=== PATIENT | male | born 1955 | race Caucasian/White ===

== ENCOUNTER 2021-01-16 14:12 | Inpatient (IN) ==
[2021-01-16] MEDS ORDERED: Nitroglycerin 0.4 MG TAB.SUBL SL PRN (14:37)
[2021-01-16] MEDS ORDERED: *HR* Insulin Regular U-500 500 UNIT/ML SUBQ SCH (17:00)
[2021-01-16] MEDS: *HR* Heparin 5,000 UNIT/ML VIAL SQ SCH (17:35)
[2021-01-16] MEDS ORDERED: Acetaminophen 325 MG TABLET PO ONE (17:46)
[2021-01-16] MEDS ORDERED: *HR* Heparin 5,000 UNIT/ML VIAL SQ SCH ×2 (18:00)
[2021-01-16] MEDS: *HR* Insulin Regular U-500 500 UNIT/ML SUBQ SCH (18:53)
[2021-01-16] MEDS: *HR* OxyCODONE Immed Rel 5 MG TABLET PO PRN (20:01)
[2021-01-16] MEDS: Pregabalin 75 MG CAPSULE PO SCH (20:03)
[2021-01-17] MEDS: *HR* OxyCODONE Immed Rel 5 MG TABLET PO PRN ×4 (05:37→22:57)
[2021-01-17] MEDS: *HR* Heparin 5,000 UNIT/ML VIAL SQ SCH ×2 (05:38→17:01)
[2021-01-17 07:03] LABS: Basophils # 0.1 K/mcL (0.0-0.2); Basophils % 1.4 %; Eosinophils # 0.2 K/mcL (0.0-0.6); Eosinophils % 3.6 %; Hematocrit 34.7 % (37.5-50.1); Hemoglobin 11.7 g/dL (12.9-16.9); Immature Granulocytes % 0.9 % (0-4); Lymphocytes # 1.4 K/mcL (0.6-4.6); Lymphocytes % 22.1 %; Mean Corpuscular HGB Conc 33.7 g/dL (31.6-35.5); Mean Corpuscular Hemoglobin 31.5 pg (28.0-33.3); Mean Corpuscular Volume 93.3 fL (83.0-100.0); Mean Platelet Volume 10.2 fL (9.4-12.4); Monocytes # 0.5 K/mcL (0.0-1.3); Monocytes % 7.6 %; Neutrophils # 4.1 K/mcL (1.6-8.9); Platelet Count 328 K/mcL (140-400); Red Blood Count 3.72 M/mcL (4.19-5.50); Red Cell Distribution Width 12.4 % (11.5-14.5); Segmented Neutrophils % 64.4 %; White Blood Count 6.3 K/mcL (4.3-11.1)
[2021-01-17 07:27] LABS: BUN/Creatinine Ratio 25 (6-26); Blood Urea Nitrogen 30 mg/dL (8-23); Calcium 10.1 mg/dL (8.6-10.3); Carbon Dioxide 28 mEq/L (23-29); Chloride 99 mEq/L (98-107); Glucose 300 mg/dL (70-105); Osmolality,Calculated 301 (280-300); Potassium 4.1 mEq/L (3.5-5.1); Sodium 137 mEq/L (136-145); eGFR For African Americans > 60 (> 60); eGFR For Non-African Americans > 60 (> 60)
[2021-01-17] MEDS ORDERED: *HR* Insulin Regular U-500 500 UNIT/ML SUBQ SCH (08:00)
[2021-01-17] MEDS: Nicotine 21 MG PATCH.TD24 TD SCH (08:17)
[2021-01-17] MEDS: Metoprolol XL (24 HR) Succ 50 MG TAB.ER.24H PO SCH (08:18)
[2021-01-17] MEDS: Aspirin Enteric Coated 81 MG Tablet PO SCH (08:18)
[2021-01-17] MEDS: Fenofibrate 54 MG TABLET PO SCH (08:18)
[2021-01-17] MEDS: Niacin (24 HR) 500 MG TAB.ER.24H PO SCH (08:19)
[2021-01-17] MEDS: Pregabalin 75 MG CAPSULE PO SCH ×2 (08:19→20:27)
[2021-01-17] MEDS: *HR* Insulin Regular U-500 500 UNIT/ML SUBQ SCH ×2 (08:35→16:18)
[2021-01-17] MEDS: Insulin DETEMIR 100 UNIT/ML X5UNITS SUBQ SCH (20:26)
[2021-01-18] MEDS: *HR* OxyCODONE Immed Rel 5 MG TABLET PO PRN ×4 (03:07→18:31)
[2021-01-18] MEDS: *HR* Heparin 5,000 UNIT/ML VIAL SQ SCH ×2 (05:40→18:31)
[2021-01-18] MEDS: Metoprolol XL (24 HR) Succ 50 MG TAB.ER.24H PO SCH (08:40)
[2021-01-18] MEDS: Aspirin Enteric Coated 81 MG Tablet PO SCH (08:41)
[2021-01-18] MEDS: Nicotine 21 MG PATCH.TD24 TD SCH (08:41)
[2021-01-18] MEDS: Pregabalin 75 MG CAPSULE PO SCH ×2 (08:41→20:58)
[2021-01-18] MEDS: Niacin (24 HR) 500 MG TAB.ER.24H PO SCH (08:41)
[2021-01-18] MEDS: Fenofibrate 54 MG TABLET PO SCH (08:41)
[2021-01-18] MEDS: Insulin DETEMIR 100 UNIT/ML X5UNITS SUBQ SCH ×2 (08:42→18:31)
[2021-01-18] MEDS: *HR* Insulin Regular U-500 500 UNIT/ML SUBQ SCH ×2 (08:54→18:46)
[2021-01-19] MEDS: *HR* OxyCODONE Immed Rel 5 MG TABLET PO PRN ×5 (02:47→22:13)
[2021-01-19] MEDS: *HR* Heparin 5,000 UNIT/ML VIAL SQ SCH ×2 (06:30→17:16)
[2021-01-19] MEDS: Fenofibrate 54 MG TABLET PO SCH (08:59)
[2021-01-19] MEDS: Niacin (24 HR) 500 MG TAB.ER.24H PO SCH (08:59)
[2021-01-19] MEDS: Metoprolol XL (24 HR) Succ 50 MG TAB.ER.24H PO SCH (09:00)
[2021-01-19] MEDS: Aspirin Enteric Coated 81 MG Tablet PO SCH (09:00)
[2021-01-19] MEDS: Pregabalin 75 MG CAPSULE PO SCH ×2 (09:01→22:13)
[2021-01-19] MEDS: Nicotine 21 MG PATCH.TD24 TD SCH (09:07)
[2021-01-19] MEDS: Insulin DETEMIR 100 UNIT/ML X5UNITS SUBQ SCH ×2 (09:08→09:18)
[2021-01-19] MEDS: *HR* Insulin Regular U-500 500 UNIT/ML SUBQ SCH ×2 (09:08→17:13)
[2021-01-20] MEDS: *HR* OxyCODONE Immed Rel 5 MG TABLET PO PRN ×4 (05:11→21:02)
[2021-01-20] MEDS: *HR* Heparin 5,000 UNIT/ML VIAL SQ SCH ×2 (05:11→16:52)
[2021-01-20] MEDS: Metoprolol XL (24 HR) Succ 50 MG TAB.ER.24H PO SCH (08:26)
[2021-01-20] MEDS: Niacin (24 HR) 500 MG TAB.ER.24H PO SCH (08:26)
[2021-01-20] MEDS: Pregabalin 75 MG CAPSULE PO SCH ×2 (08:26→20:40)
[2021-01-20] MEDS: Fenofibrate 54 MG TABLET PO SCH (08:26)
[2021-01-20] MEDS: Aspirin Enteric Coated 81 MG Tablet PO SCH (08:26)
[2021-01-20] MEDS: Insulin DETEMIR 100 UNIT/ML X5UNITS SUBQ SCH ×2 (08:28→20:40)
[2021-01-20] MEDS: *HR* Insulin Regular U-500 500 UNIT/ML SUBQ SCH ×2 (08:29→16:51)
[2021-01-21] MEDS: *HR* Heparin 5,000 UNIT/ML VIAL SQ SCH ×2 (06:13→17:19)
[2021-01-21] MEDS: *HR* OxyCODONE Immed Rel 5 MG TABLET PO PRN ×4 (06:16→20:31)
[2021-01-21] MEDS: Fenofibrate 54 MG TABLET PO SCH (08:32)
[2021-01-21] MEDS: Pregabalin 75 MG CAPSULE PO SCH ×2 (08:32→20:31)
[2021-01-21] MEDS: Aspirin Enteric Coated 81 MG Tablet PO SCH (08:32)
[2021-01-21] MEDS: Metoprolol XL (24 HR) Succ 50 MG TAB.ER.24H PO SCH (08:32)
[2021-01-21] MEDS: Niacin (24 HR) 500 MG TAB.ER.24H PO SCH (08:32)
[2021-01-21] MEDS: Insulin DETEMIR 100 UNIT/ML X5UNITS SUBQ SCH ×3 (08:33→20:32)
[2021-01-21] MEDS: *HR* Insulin Regular U-500 500 UNIT/ML SUBQ SCH ×2 (08:33→17:19)
[2021-01-22] MEDS: *HR* OxyCODONE Immed Rel 5 MG TABLET PO PRN ×2 (01:31→20:34)
[2021-01-22] MEDS: *HR* Heparin 5,000 UNIT/ML VIAL SQ SCH ×2 (05:52→17:47)
[2021-01-22] MEDS: Metoprolol XL (24 HR) Succ 50 MG TAB.ER.24H PO SCH (08:20)
[2021-01-22] MEDS: Niacin (24 HR) 500 MG TAB.ER.24H PO SCH (08:20)
[2021-01-22] MEDS: Pregabalin 75 MG CAPSULE PO SCH ×2 (08:21→20:34)
[2021-01-22] MEDS: *HR* Insulin Regular U-500 500 UNIT/ML SUBQ SCH ×2 (08:21→17:48)
[2021-01-22] MEDS: Insulin DETEMIR 100 UNIT/ML X5UNITS SUBQ SCH ×2 (08:21→20:34)
[2021-01-22] MEDS: Fenofibrate 54 MG TABLET PO SCH (08:21)
[2021-01-22] MEDS: Aspirin Enteric Coated 81 MG Tablet PO SCH (08:21)
[2021-01-23] MEDS: *HR* Heparin 5,000 UNIT/ML VIAL SQ SCH ×2 (04:59→21:47)
[2021-01-23] MEDS: Metoprolol XL (24 HR) Succ 50 MG TAB.ER.24H PO SCH (10:43)
[2021-01-23] MEDS: Niacin (24 HR) 500 MG TAB.ER.24H PO SCH (10:44)
[2021-01-23] MEDS: Fenofibrate 54 MG TABLET PO SCH (10:44)
[2021-01-23] MEDS: Pregabalin 75 MG CAPSULE PO SCH ×2 (10:45→21:47)
[2021-01-23] MEDS: Aspirin Enteric Coated 81 MG Tablet PO SCH (10:45)
[2021-01-23] MEDS: Insulin DETEMIR 100 UNIT/ML X5UNITS SUBQ SCH ×2 (10:49→22:17)
[2021-01-23] MEDS: *HR* Insulin Regular U-500 500 UNIT/ML SUBQ SCH (10:49)
[2021-01-23] MEDS: *HR* OxyCODONE Immed Rel 5 MG TABLET PO PRN (17:58)
[2021-01-24] MEDS: *HR* Heparin 5,000 UNIT/ML VIAL SQ SCH ×2 (06:06→17:04)
[2021-01-24] MEDS: *HR* Insulin Regular U-500 500 UNIT/ML SUBQ SCH ×3 (07:32→17:04)
[2021-01-24] MEDS: Metoprolol XL (24 HR) Succ 50 MG TAB.ER.24H PO SCH (08:46)
[2021-01-24] MEDS: Aspirin Enteric Coated 81 MG Tablet PO SCH (08:46)
[2021-01-24] MEDS: Fenofibrate 54 MG TABLET PO SCH (08:47)
[2021-01-24] MEDS: Pregabalin 75 MG CAPSULE PO SCH ×2 (08:47→20:06)
[2021-01-24] MEDS: Niacin (24 HR) 500 MG TAB.ER.24H PO SCH (08:47)
[2021-01-24] MEDS: Insulin DETEMIR 100 UNIT/ML X5UNITS SUBQ SCH ×2 (08:48→20:07)
[2021-01-24 09:22] LABS: BUN/Creatinine Ratio 15 (6-26); Basophils # 0.1 K/mcL (0.0-0.2); Basophils % 1.2 %; Blood Urea Nitrogen 19 mg/dL (8-23); Calcium 10.3 mg/dL (8.6-10.3); Carbon Dioxide 27 mEq/L (23-29); Chloride 98 mEq/L (98-107); Eosinophils # 0.2 K/mcL (0.0-0.6); Eosinophils % 2.4 %; Glucose 297 mg/dL (70-105); Hematocrit 33.5 % (37.5-50.1); Hemoglobin 11.1 g/dL (12.9-16.9); Immature Granulocytes % 1.1 % (0-4); Lymphocytes # 1.3 K/mcL (0.6-4.6); Lymphocytes % 17.4 %; Mean Corpuscular HGB Conc 33.1 g/dL (31.6-35.5); Mean Corpuscular Hemoglobin 30.7 pg (28.0-33.3); Mean Corpuscular Volume 92.8 fL (83.0-100.0); Monocytes # 0.7 K/mcL (0.0-1.3); Monocytes % 9.2 %; Neutrophils # 5.1 K/mcL (1.6-8.9); Osmolality,Calculated 293 (280-300); Platelet Count 375 K/mcL (140-400); Potassium 4.6 mEq/L (3.5-5.1); Red Blood Count 3.61 M/mcL (4.19-5.50); Red Cell Distribution Width 12.5 % (11.5-14.5); Segmented Neutrophils % 68.7 %; Sodium 135 mEq/L (136-145); White Blood Count 7.4 K/mcL (4.3-11.1); eGFR For African Americans > 60 (> 60); eGFR For Non-African Americans 59 (> 60)
[2021-01-24] MEDS: *HR* OxyCODONE Immed Rel 5 MG TABLET PO PRN (22:25)
[2021-01-25] MEDS: *HR* OxyCODONE Immed Rel 5 MG TABLET PO PRN ×2 (02:34→08:10)
[2021-01-25] MEDS: *HR* Heparin 5,000 UNIT/ML VIAL SQ SCH ×2 (06:10→18:22)
[2021-01-25] MEDS: Aspirin Enteric Coated 81 MG Tablet PO SCH (08:09)
[2021-01-25] MEDS: Fenofibrate 54 MG TABLET PO SCH (08:09)
[2021-01-25] MEDS: Niacin (24 HR) 500 MG TAB.ER.24H PO SCH (08:10)
[2021-01-25] MEDS: Pregabalin 75 MG CAPSULE PO SCH ×2 (08:10→22:27)
[2021-01-25] MEDS: Metoprolol XL (24 HR) Succ 50 MG TAB.ER.24H PO SCH (08:10)
[2021-01-25] MEDS: *HR* Insulin Regular U-500 500 UNIT/ML SUBQ SCH ×2 (10:36→18:23)
[2021-01-25] MEDS: Insulin DETEMIR 100 UNIT/ML X5UNITS SUBQ SCH ×2 (10:36→18:23)
[2021-01-26] MEDS: *HR* OxyCODONE Immed Rel 5 MG TABLET PO PRN ×3 (00:05→22:21)
[2021-01-26] MEDS: *HR* Heparin 5,000 UNIT/ML VIAL SQ SCH ×2 (06:46→17:00)
[2021-01-26] MEDS: Niacin (24 HR) 500 MG TAB.ER.24H PO SCH (09:20)
[2021-01-26] MEDS: Fenofibrate 54 MG TABLET PO SCH (09:20)
[2021-01-26] MEDS: Aspirin Enteric Coated 81 MG Tablet PO SCH (09:20)
[2021-01-26] MEDS: Metoprolol XL (24 HR) Succ 50 MG TAB.ER.24H PO SCH (09:20)
[2021-01-26] MEDS: Pregabalin 75 MG CAPSULE PO SCH ×2 (09:20→22:07)
[2021-01-26] MEDS: Insulin DETEMIR 100 UNIT/ML X5UNITS SUBQ SCH ×2 (09:21→22:07)
[2021-01-26] MEDS: *HR* Insulin Regular U-500 500 UNIT/ML SUBQ SCH ×2 (09:21→17:01)
[2021-01-27] MEDS: *HR* Heparin 5,000 UNIT/ML VIAL SQ SCH ×2 (05:28→17:35)
[2021-01-27] MEDS: *HR* Insulin Regular U-500 500 UNIT/ML SUBQ SCH ×2 (08:39→17:36)
[2021-01-27] MEDS: Fenofibrate 54 MG TABLET PO SCH (08:39)
[2021-01-27] MEDS: Metoprolol XL (24 HR) Succ 50 MG TAB.ER.24H PO SCH (08:39)
[2021-01-27] MEDS: Niacin (24 HR) 500 MG TAB.ER.24H PO SCH (08:39)
[2021-01-27] MEDS: Pregabalin 75 MG CAPSULE PO SCH ×2 (08:39→22:12)
[2021-01-27] MEDS: Aspirin Enteric Coated 81 MG Tablet PO SCH (08:39)
[2021-01-27] MEDS: Insulin DETEMIR 100 UNIT/ML X5UNITS SUBQ SCH ×2 (08:40→22:13)
[2021-01-27] MEDS: *HR* OxyCODONE Immed Rel 5 MG TABLET PO PRN ×3 (09:10→22:12)
[2021-01-28] MEDS: *HR* Heparin 5,000 UNIT/ML VIAL SQ SCH ×2 (06:20→17:28)
[2021-01-28] MEDS: Aspirin Enteric Coated 81 MG Tablet PO SCH (09:25)
[2021-01-28] MEDS: Pregabalin 75 MG CAPSULE PO SCH ×2 (09:26→20:10)
[2021-01-28] MEDS: Fenofibrate 54 MG TABLET PO SCH (09:26)
[2021-01-28] MEDS: Niacin (24 HR) 500 MG TAB.ER.24H PO SCH (09:26)
[2021-01-28] MEDS: Metoprolol XL (24 HR) Succ 50 MG TAB.ER.24H PO SCH (09:26)
[2021-01-28] MEDS: *HR* OxyCODONE Immed Rel 5 MG TABLET PO PRN ×3 (09:26→20:09)
[2021-01-28] MEDS: *HR* Insulin Regular U-500 500 UNIT/ML SUBQ SCH ×2 (09:27→17:28)
[2021-01-28] MEDS: Insulin DETEMIR 100 UNIT/ML X5UNITS SUBQ SCH ×2 (09:27→20:10)
[2021-01-29] MEDS: *HR* Heparin 5,000 UNIT/ML VIAL SQ SCH ×2 (06:31→17:15)
[2021-01-29] MEDS: Niacin (24 HR) 500 MG TAB.ER.24H PO SCH (09:21)
[2021-01-29] MEDS: Insulin DETEMIR 100 UNIT/ML X5UNITS SUBQ SCH ×2 (09:21→19:59)
[2021-01-29] MEDS: *HR* Insulin Regular U-500 500 UNIT/ML SUBQ SCH ×2 (09:21→17:14)
[2021-01-29] MEDS: Pregabalin 75 MG CAPSULE PO SCH ×2 (09:22→19:58)
[2021-01-29] MEDS: Fenofibrate 54 MG TABLET PO SCH (09:22)
[2021-01-29] MEDS: Aspirin Enteric Coated 81 MG Tablet PO SCH (09:22)
[2021-01-29] MEDS: Metoprolol XL (24 HR) Succ 50 MG TAB.ER.24H PO SCH (09:22)
[2021-01-29] MEDS: *HR* OxyCODONE Immed Rel 5 MG TABLET PO PRN ×2 (11:13→19:58)
[2021-01-30] MEDS: *HR* Heparin 5,000 UNIT/ML VIAL SQ SCH ×2 (06:37→17:58)
[2021-01-30] MEDS: Metoprolol XL (24 HR) Succ 50 MG TAB.ER.24H PO SCH (06:37)
[2021-01-30] MEDS: Fenofibrate 54 MG TABLET PO SCH (06:38)
[2021-01-30] MEDS: Aspirin Enteric Coated 81 MG Tablet PO SCH (06:40)
[2021-01-30] MEDS: Pregabalin 75 MG CAPSULE PO SCH ×2 (07:27→19:56)
[2021-01-30] MEDS: Niacin (24 HR) 500 MG TAB.ER.24H PO SCH (07:33)
[2021-01-30] MEDS: Insulin DETEMIR 100 UNIT/ML X5UNITS SUBQ SCH ×2 (07:50→21:17)
[2021-01-30] MEDS: *HR* Insulin Regular U-500 500 UNIT/ML SUBQ SCH ×2 (07:51→17:58)
[2021-01-30] MEDS: *HR* OxyCODONE Immed Rel 5 MG TABLET PO PRN ×2 (12:06→19:56)
[2021-01-31] MEDS: *HR* Heparin 5,000 UNIT/ML VIAL SQ SCH ×2 (06:15→16:29)
[2021-01-31] MEDS: *HR* OxyCODONE Immed Rel 5 MG TABLET PO PRN ×3 (06:16→23:51)
[2021-01-31] MEDS: Aspirin Enteric Coated 81 MG Tablet PO SCH (09:03)
[2021-01-31] MEDS: Fenofibrate 54 MG TABLET PO SCH (09:04)
[2021-01-31] MEDS: Metoprolol XL (24 HR) Succ 50 MG TAB.ER.24H PO SCH (09:05)
[2021-01-31] MEDS: Niacin (24 HR) 500 MG TAB.ER.24H PO SCH (09:07)
[2021-01-31] MEDS: *HR* Insulin Regular U-500 500 UNIT/ML SUBQ SCH ×2 (09:08→16:29)
[2021-01-31] MEDS: Insulin DETEMIR 100 UNIT/ML X5UNITS SUBQ SCH ×2 (09:09→19:46)
[2021-02-01] MEDS: *HR* Heparin 5,000 UNIT/ML VIAL SQ SCH ×2 (05:19→17:39)
[2021-02-01] MEDS: Aspirin Enteric Coated 81 MG Tablet PO SCH (09:07)
[2021-02-01] MEDS: Niacin (24 HR) 500 MG TAB.ER.24H PO SCH (09:07)
[2021-02-01] MEDS: Metoprolol XL (24 HR) Succ 50 MG TAB.ER.24H PO SCH (09:09)
[2021-02-01] MEDS: Fenofibrate 54 MG TABLET PO SCH (09:09)
[2021-02-01] MEDS: *HR* Insulin Regular U-500 500 UNIT/ML SUBQ SCH ×2 (09:10→16:41)
[2021-02-01] MEDS: Insulin DETEMIR 100 UNIT/ML X5UNITS SUBQ SCH ×2 (09:10→21:38)
[2021-02-01] MEDS: *HR* OxyCODONE Immed Rel 5 MG TABLET PO PRN ×2 (09:27→21:37)
[2021-02-02] MEDS: *HR* OxyCODONE Immed Rel 5 MG TABLET PO PRN ×2 (04:48→20:26)
[2021-02-02] MEDS: *HR* Heparin 5,000 UNIT/ML VIAL SQ SCH ×2 (05:46→16:44)
[2021-02-02] MEDS: Niacin (24 HR) 500 MG TAB.ER.24H PO SCH (10:00)
[2021-02-02] MEDS: Metoprolol XL (24 HR) Succ 50 MG TAB.ER.24H PO SCH (10:00)
[2021-02-02] MEDS: Fenofibrate 54 MG TABLET PO SCH (10:00)
[2021-02-02] MEDS: Aspirin Enteric Coated 81 MG Tablet PO SCH (10:01)
[2021-02-02] MEDS: Insulin DETEMIR 100 UNIT/ML X5UNITS SUBQ SCH ×2 (10:01→20:26)
[2021-02-02] MEDS: *HR* Insulin Regular U-500 500 UNIT/ML SUBQ SCH ×2 (10:02→16:45)
[2021-02-03] MEDS: *HR* OxyCODONE Immed Rel 5 MG TABLET PO PRN ×3 (05:08→17:35)
[2021-02-03] MEDS: *HR* Heparin 5,000 UNIT/ML VIAL SQ SCH ×2 (05:09→17:36)
[2021-02-03] MEDS: Metoprolol XL (24 HR) Succ 50 MG TAB.ER.24H PO SCH (08:23)
[2021-02-03] MEDS: Aspirin Enteric Coated 81 MG Tablet PO SCH (08:24)
[2021-02-03] MEDS: Fenofibrate 54 MG TABLET PO SCH (08:24)
[2021-02-03] MEDS: Niacin (24 HR) 500 MG TAB.ER.24H PO SCH (08:24)
[2021-02-03] MEDS: *HR* Insulin Regular U-500 500 UNIT/ML SUBQ SCH ×2 (08:24→17:39)
[2021-02-03] MEDS: Insulin DETEMIR 100 UNIT/ML X5UNITS SUBQ SCH ×2 (08:25→20:58)
[2021-02-04] MEDS: *HR* OxyCODONE Immed Rel 5 MG TABLET PO PRN ×3 (04:16→19:34)
[2021-02-04] MEDS: *HR* Heparin 5,000 UNIT/ML VIAL SQ SCH ×2 (05:34→18:08)
[2021-02-04] MEDS: Metoprolol XL (24 HR) Succ 50 MG TAB.ER.24H PO SCH (08:33)
[2021-02-04] MEDS: *HR* Insulin Regular U-500 500 UNIT/ML SUBQ SCH ×2 (08:34→18:08)
[2021-02-04] MEDS: Fenofibrate 54 MG TABLET PO SCH (08:34)
[2021-02-04] MEDS: Insulin DETEMIR 100 UNIT/ML X5UNITS SUBQ SCH ×2 (08:34→19:36)
[2021-02-04] MEDS: Aspirin Enteric Coated 81 MG Tablet PO SCH (08:34)
[2021-02-04] MEDS: Niacin (24 HR) 500 MG TAB.ER.24H PO SCH (08:35)
[2021-02-05] MEDS: *HR* Heparin 5,000 UNIT/ML VIAL SQ SCH ×2 (06:37→17:35)
[2021-02-05] MEDS: *HR* Insulin Regular U-500 500 UNIT/ML SUBQ SCH ×2 (09:55→17:35)
[2021-02-05] MEDS: Insulin DETEMIR 100 UNIT/ML X5UNITS SUBQ SCH ×2 (09:56→22:28)
[2021-02-05] MEDS: Fenofibrate 54 MG TABLET PO SCH (09:56)
[2021-02-05] MEDS: Niacin (24 HR) 500 MG TAB.ER.24H PO SCH (09:57)
[2021-02-05] MEDS: Metoprolol XL (24 HR) Succ 50 MG TAB.ER.24H PO SCH (09:58)
[2021-02-05] MEDS: Aspirin Enteric Coated 81 MG Tablet PO SCH (09:58)
[2021-02-05] MEDS: *HR* OxyCODONE Immed Rel 5 MG TABLET PO PRN ×3 (10:09→22:27)
[2021-02-05 18:28] LABS: Adenovirus Not Detected (Not Detect); Coronavirus 229E Not Detected (Not Detect); Coronavirus HKU1 Not Detected (Not Detect); Coronavirus NL63 Not Detected (Not Detect)
[2021-02-05 18:29] LABS: Bordetella Pertussis Not Detected (Not Detect); Chlamydophila pneumoniae Not Detected (Not Detect); Coronavirus OC43 Not Detected (Not Detect); Human Metapneumovirus Not Detected (Not Detect); Human Rhinovirus/Enterovirus Not Detected (Not Detect); Influenza A Subtype 2009 H1 Not Detected (Not Detect); Influenza B Not Detected (Not Detect); Mycoplasma pneumoniae Not Detected (Not Detect); Parainfluenza Virus 1 Not Detected (Not Detect); Parainfluenza Virus 2 Not Detected (Not Detect); Parainfluenza Virus 3 Not Detected (Not Detect); Parainfluenza Virus 4 Not Detected (Not Detect); Respiratory Syncytial Virus Not Detected (Not Detect); SARS-CoV-2 DETECTED (Not Detect)
[2021-02-06] MEDS: *HR* Heparin 5,000 UNIT/ML VIAL SQ SCH ×2 (05:27→18:08)
[2021-02-06] MEDS: *HR* OxyCODONE Immed Rel 5 MG TABLET PO PRN ×2 (08:08→20:10)
[2021-02-06] MEDS: *HR* Insulin Regular U-500 500 UNIT/ML SUBQ SCH (08:10)
[2021-02-06] MEDS: Metoprolol XL (24 HR) Succ 50 MG TAB.ER.24H PO SCH (08:13)
[2021-02-06] MEDS: Fenofibrate 54 MG TABLET PO SCH (08:13)
[2021-02-06] MEDS: Niacin (24 HR) 500 MG TAB.ER.24H PO SCH (08:13)
[2021-02-06] MEDS: Aspirin Enteric Coated 81 MG Tablet PO SCH (08:13)
[2021-02-06] MEDS: Insulin DETEMIR 100 UNIT/ML X5UNITS SUBQ SCH ×2 (08:14→20:17)
[2021-02-06 09:15] LABS: Basophils # 0.1 K/mcL (0.0-0.2); Basophils % 0.7 %; Eosinophils # 0.2 K/mcL (0.0-0.6); Eosinophils % 2.6 %; Hematocrit 34.3 % (37.5-50.1); Hemoglobin 11.3 g/dL (12.9-16.9); Immature Granulocytes % 0.6 % (0-4); Lymphocytes # 1.5 K/mcL (0.6-4.6); Lymphocytes % 17.7 %; Mean Corpuscular HGB Conc 32.9 g/dL (31.6-35.5); Mean Corpuscular Hemoglobin 29.8 pg (28.0-33.3); Mean Corpuscular Volume 90.5 fL (83.0-100.0); Mean Platelet Volume 9.4 fL (9.4-12.4); Monocytes # 0.7 K/mcL (0.0-1.3); Monocytes % 8.7 %; Neutrophils # 5.8 K/mcL (1.6-8.9); Platelet Count 334 K/mcL (140-400); Red Blood Count 3.79 M/mcL (4.19-5.50); Red Cell Distribution Width 12.8 % (11.5-14.5); Segmented Neutrophils % 69.7 %; White Blood Count 8.4 K/mcL (4.3-11.1)
[2021-02-06 10:11] LABS: BUN/Creatinine Ratio 16 (6-26); Blood Urea Nitrogen 21 mg/dL (8-23); Calcium 10.1 mg/dL (8.6-10.3); Carbon Dioxide 29 mEq/L (23-29); Chloride 98 mEq/L (98-107); Glucose 159 mg/dL (70-105); Osmolality,Calculated 288 (280-300); Potassium 4.3 mEq/L (3.5-5.1); Sodium 136 mEq/L (136-145); eGFR For African Americans > 60 (> 60); eGFR For Non-African Americans 56 (> 60)
[2021-02-06] MEDS: Ondansetron ODT 4 MG TAB.RAPDIS SL PRN (10:44)
[2021-02-07] MEDS: *HR* Heparin 5,000 UNIT/ML VIAL SQ SCH ×2 (05:30→18:37)
[2021-02-07] MEDS: *HR* OxyCODONE Immed Rel 5 MG TABLET PO PRN (10:28)
[2021-02-07] MEDS: Benzonatate 100 MG CAPSULE PO PRN ×2 (10:28→20:47)
[2021-02-07] MEDS: Aspirin Enteric Coated 81 MG Tablet PO SCH (10:29)
[2021-02-07] MEDS: Metoprolol XL (24 HR) Succ 50 MG TAB.ER.24H PO SCH (10:29)
[2021-02-07] MEDS: Insulin DETEMIR 100 UNIT/ML X5UNITS SUBQ SCH ×2 (10:30→20:52)
[2021-02-07] MEDS: Fenofibrate 54 MG TABLET PO SCH (10:30)
[2021-02-07] MEDS: Niacin (24 HR) 500 MG TAB.ER.24H PO SCH (10:35)
[2021-02-08] MEDS: GuaiFENesin Liq 200 MG/10 ML UDC PO PRN ×3 (00:17→18:23)
[2021-02-08] MEDS: *HR* OxyCODONE Immed Rel 5 MG TABLET PO PRN ×3 (03:49→18:23)
[2021-02-08] MEDS: *HR* Heparin 5,000 UNIT/ML VIAL SQ SCH ×2 (06:16→18:24)
[2021-02-08] MEDS: Aspirin Enteric Coated 81 MG Tablet PO SCH (10:13)
[2021-02-08] MEDS: Benzonatate 100 MG CAPSULE PO PRN (10:13)
[2021-02-08] MEDS: Niacin (24 HR) 500 MG TAB.ER.24H PO SCH (10:13)
[2021-02-08] MEDS: Fenofibrate 54 MG TABLET PO SCH (10:13)
[2021-02-08] MEDS: Insulin DETEMIR 100 UNIT/ML X5UNITS SUBQ SCH ×2 (10:14→20:18)
[2021-02-08] MEDS: Metoprolol XL (24 HR) Succ 50 MG TAB.ER.24H PO SCH (10:14)
[2021-02-08] MEDS: *HR* LORazepam 0.5 MG TABLET PO PRN (20:17)
[2021-02-09] MEDS: Benzonatate 100 MG CAPSULE PO PRN ×2 (01:06→20:50)
[2021-02-09] MEDS: GuaiFENesin Liq 200 MG/10 ML UDC PO PRN ×2 (01:06→09:45)
[2021-02-09] MEDS: *HR* Heparin 5,000 UNIT/ML VIAL SQ SCH ×2 (05:37→16:41)
[2021-02-09] MEDS: Insulin DETEMIR 100 UNIT/ML X5UNITS SUBQ SCH ×2 (09:23→20:49)
[2021-02-09] MEDS: Fenofibrate 54 MG TABLET PO SCH (09:23)
[2021-02-09] MEDS: Aspirin Enteric Coated 81 MG Tablet PO SCH (09:23)
[2021-02-09] MEDS: Metoprolol XL (24 HR) Succ 50 MG TAB.ER.24H PO SCH (09:23)
[2021-02-09] MEDS: Niacin (24 HR) 500 MG TAB.ER.24H PO SCH (09:24)
[2021-02-09] MEDS: *HR* Insulin Regular U-500 500 UNIT/ML SUBQ SCH (17:37)
[2021-02-09] MEDS: *HR* OxyCODONE Immed Rel 5 MG TABLET PO PRN (20:49)
[2021-02-09] MEDS: *HR* LORazepam 0.5 MG TABLET PO PRN (20:49)
[2021-02-10] MEDS: *HR* Heparin 5,000 UNIT/ML VIAL SQ SCH ×2 (06:41→17:01)
[2021-02-10] MEDS: Metoprolol XL (24 HR) Succ 50 MG TAB.ER.24H PO SCH (09:06)
[2021-02-10] MEDS: Fenofibrate 54 MG TABLET PO SCH (09:07)
[2021-02-10] MEDS: Niacin (24 HR) 500 MG TAB.ER.24H PO SCH (09:07)
[2021-02-10] MEDS: Aspirin Enteric Coated 81 MG Tablet PO SCH (09:07)
[2021-02-10] MEDS: Benzonatate 100 MG CAPSULE PO PRN ×2 (09:07→22:55)
[2021-02-10] MEDS: *HR* OxyCODONE Immed Rel 5 MG TABLET PO PRN (09:09)
[2021-02-10] MEDS: *HR* Insulin Regular U-500 500 UNIT/ML SUBQ SCH ×3 (09:12→16:47)
[2021-02-10] MEDS: Insulin DETEMIR 100 UNIT/ML X5UNITS SUBQ SCH ×2 (09:13→21:04)
[2021-02-10] MEDS: Ondansetron ODT 4 MG TAB.RAPDIS SL PRN (09:25)
[2021-02-10] MEDS: *HR* LORazepam 0.5 MG TABLET PO PRN (21:01)
[2021-02-10] MEDS: GuaiFENesin Liq 200 MG/10 ML UDC PO PRN (22:55)
[2021-02-11] MEDS: *HR* Heparin 5,000 UNIT/ML VIAL SQ SCH ×2 (05:37→17:01)
[2021-02-11] MEDS: Niacin (24 HR) 500 MG TAB.ER.24H PO SCH (09:41)
[2021-02-11] MEDS: Aspirin Enteric Coated 81 MG Tablet PO SCH (09:41)
[2021-02-11] MEDS: Metoprolol XL (24 HR) Succ 50 MG TAB.ER.24H PO SCH (09:41)
[2021-02-11] MEDS: Fenofibrate 54 MG TABLET PO SCH (09:41)
[2021-02-11] MEDS: *HR* Insulin Regular U-500 500 UNIT/ML SUBQ SCH ×2 (09:42→17:01)
[2021-02-11] MEDS: Insulin DETEMIR 100 UNIT/ML X5UNITS SUBQ SCH ×2 (09:43→20:25)
[2021-02-11] MEDS: Benzonatate 100 MG CAPSULE PO PRN (11:41)
[2021-02-11] MEDS: *HR* OxyCODONE Immed Rel 5 MG TABLET PO PRN (11:41)
[2021-02-11] MEDS: *HR* LORazepam 0.5 MG TABLET PO PRN (20:23)
[2021-02-11] MEDS: Sennosides/Docusate Sodium TABLET PO SCH (23:52)
[2021-02-12] MEDS: *HR* Heparin 5,000 UNIT/ML VIAL SQ SCH ×2 (05:07→18:02)
[2021-02-12] MEDS: *HR* Insulin Regular U-500 500 UNIT/ML SUBQ SCH ×2 (09:07→18:03)
[2021-02-12] MEDS: Insulin DETEMIR 100 UNIT/ML X5UNITS SUBQ SCH ×2 (09:08→21:02)
[2021-02-12] MEDS: Metoprolol XL (24 HR) Succ 50 MG TAB.ER.24H PO SCH (09:11)
[2021-02-12] MEDS: Benzonatate 100 MG CAPSULE PO PRN (09:11)
[2021-02-12] MEDS: Fenofibrate 54 MG TABLET PO SCH (09:11)
[2021-02-12] MEDS: Aspirin Enteric Coated 81 MG Tablet PO SCH (09:11)
[2021-02-12] MEDS: *HR* OxyCODONE Immed Rel 5 MG TABLET PO PRN ×2 (09:12→18:02)
[2021-02-12] MEDS: Ondansetron ODT 4 MG TAB.RAPDIS SL PRN ×2 (09:12→18:02)
[2021-02-12] MEDS: Sennosides/Docusate Sodium TABLET PO SCH ×2 (09:16→21:02)
[2021-02-12] MEDS: Niacin (24 HR) 500 MG TAB.ER.24H PO SCH (09:17)
[2021-02-12] MEDS: *HR* LORazepam 0.5 MG TABLET PO PRN (21:02)
[2021-02-13] MEDS: *HR* Heparin 5,000 UNIT/ML VIAL SQ SCH ×2 (05:41→17:30)
[2021-02-13] MEDS: Niacin (24 HR) 500 MG TAB.ER.24H PO SCH (09:36)
[2021-02-13] MEDS: Fenofibrate 54 MG TABLET PO SCH (09:36)
[2021-02-13] MEDS: Aspirin Enteric Coated 81 MG Tablet PO SCH (09:36)
[2021-02-13] MEDS: Sennosides/Docusate Sodium TABLET PO SCH ×2 (09:36→20:49)
[2021-02-13] MEDS: *HR* Insulin Regular U-500 500 UNIT/ML SUBQ SCH ×2 (09:37→17:30)
[2021-02-13] MEDS: Insulin DETEMIR 100 UNIT/ML X5UNITS SUBQ SCH ×2 (09:37→21:18)
[2021-02-13] MEDS: Metoprolol XL (24 HR) Succ 50 MG TAB.ER.24H PO SCH (09:37)
[2021-02-13] MEDS: *HR* OxyCODONE Immed Rel 5 MG TABLET PO PRN (09:42)
[2021-02-13] MEDS: Benzonatate 100 MG CAPSULE PO PRN (09:42)
[2021-02-13] MEDS: *HR* LORazepam 0.5 MG TABLET PO PRN (20:49)
[2021-02-13] MEDS: Ondansetron ODT 4 MG TAB.RAPDIS SL PRN (20:59)
[2021-02-14] MEDS: *HR* Heparin 5,000 UNIT/ML VIAL SQ SCH ×2 (06:10→17:54)
[2021-02-14] MEDS: Ondansetron ODT 4 MG TAB.RAPDIS SL PRN ×2 (06:59→20:14)
[2021-02-14] MEDS: Niacin (24 HR) 500 MG TAB.ER.24H PO SCH (09:31)
[2021-02-14] MEDS: Benzonatate 100 MG CAPSULE PO PRN (09:31)
[2021-02-14] MEDS: Sennosides/Docusate Sodium TABLET PO SCH ×2 (09:31→20:22)
[2021-02-14] MEDS: Aspirin Enteric Coated 81 MG Tablet PO SCH (09:31)
[2021-02-14] MEDS: Fenofibrate 54 MG TABLET PO SCH (09:31)
[2021-02-14] MEDS: Metoprolol XL (24 HR) Succ 50 MG TAB.ER.24H PO SCH (09:31)
[2021-02-14] MEDS: Insulin DETEMIR 100 UNIT/ML X5UNITS SUBQ SCH ×2 (09:32→20:16)
[2021-02-14] MEDS: *HR* Insulin Regular U-500 500 UNIT/ML SUBQ SCH ×2 (09:44→17:55)
[2021-02-14] MEDS: *HR* LORazepam 0.5 MG TABLET PO PRN (20:15)
[2021-02-14] MEDS: GuaiFENesin Liq 200 MG/10 ML UDC PO PRN (23:52)
[2021-02-15] MEDS: *HR* Heparin 5,000 UNIT/ML VIAL SQ SCH ×2 (05:07→16:57)
[2021-02-15] MEDS: Ondansetron ODT 4 MG TAB.RAPDIS SL PRN (05:10)
[2021-02-15] MEDS: Metoprolol XL (24 HR) Succ 50 MG TAB.ER.24H PO SCH (07:32)
[2021-02-15] MEDS: Aspirin Enteric Coated 81 MG Tablet PO SCH (07:32)
[2021-02-15] MEDS: Benzonatate 100 MG CAPSULE PO PRN (07:33)
[2021-02-15] MEDS: Fenofibrate 54 MG TABLET PO SCH (07:33)
[2021-02-15] MEDS: Sennosides/Docusate Sodium TABLET PO SCH ×2 (07:33→21:53)
[2021-02-15] MEDS: Niacin (24 HR) 500 MG TAB.ER.24H PO SCH (07:33)
[2021-02-15] MEDS: *HR* Insulin Regular U-500 500 UNIT/ML SUBQ SCH ×2 (09:05→16:57)
[2021-02-15] MEDS: Insulin DETEMIR 100 UNIT/ML X5UNITS SUBQ SCH ×2 (09:05→21:52)
[2021-02-15 09:23] LABS: Hematocrit 33.7 % (37.5-50.1); Hemoglobin 11.2 g/dL (12.9-16.9); Mean Corpuscular HGB Conc 33.2 g/dL (31.6-35.5); Mean Corpuscular Hemoglobin 29.8 pg (28.0-33.3); Mean Corpuscular Volume 89.6 fL (83.0-100.0); Mean Platelet Volume 9.6 fL (9.4-12.4); Platelet Count 400 K/mcL (140-400); Red Blood Count 3.76 M/mcL (4.19-5.50); Red Cell Distribution Width 13.2 % (11.5-14.5); White Blood Count 14.3 K/mcL (4.3-11.1)
[2021-02-15 09:33] LABS: Alanine Aminotransferase 17 Units/L (7-52); Albumin 3.6 g/dL (3.5-5.7); Alkaline Phosphatase 82 Units/L (34-104); Aspartate Amino Transferase 18 Units/L (13-39); BUN/Creatinine Ratio 14 (6-26); Bilirubin,Total 0.5 mg/dL (0.3-1.0); Blood Urea Nitrogen 17 mg/dL (8-23); Calcium 10.1 mg/dL (8.6-10.3); Carbon Dioxide 30 mEq/L (23-29); Chloride 95 mEq/L (98-107); Globulin 3.7 g/dL (2.4-3.5); Glucose 171 mg/dL (70-105); Magnesium 1.4 mg/dL (1.6-2.6); Osmolality,Calculated 282 (280-300); Potassium 4.2 mEq/L (3.5-5.1); Sodium 133 mEq/L (136-145); Total Protein 7.3 g/dL (6.4-8.9); eGFR For African Americans > 60 (> 60); eGFR For Non-African Americans 58 (> 60)
[2021-02-15] MEDS: *HR* OxyCODONE Immed Rel 5 MG TABLET PO PRN (21:52)
[2021-02-15] MEDS: Sulfamethoxazole/Trimeth DS 1 EACH TABLET PO SCH (21:53)
[2021-02-16] MEDS: *HR* Heparin 5,000 UNIT/ML VIAL SQ SCH ×2 (07:03→17:05)
[2021-02-16] MEDS: Ondansetron ODT 4 MG TAB.RAPDIS SL PRN (07:42)
[2021-02-16 08:22] LABS: Basophils # 0.1 K/mcL (0.0-0.2); Basophils % 0.5 %; Eosinophils # 0.1 K/mcL (0.0-0.6); Eosinophils % 0.6 %; Hematocrit 32.3 % (37.5-50.1); Hemoglobin 10.7 g/dL (12.9-16.9); Immature Granulocytes % 0.8 % (0-4); Lymphocytes # 1.4 K/mcL (0.6-4.6); Lymphocytes % 11.1 %; Mean Corpuscular HGB Conc 33.1 g/dL (31.6-35.5); Mean Corpuscular Hemoglobin 29.4 pg (28.0-33.3); Mean Corpuscular Volume 88.7 fL (83.0-100.0); Mean Platelet Volume 9.6 fL (9.4-12.4); Monocytes # 1.2 K/mcL (0.0-1.3); Monocytes % 9.4 %; Neutrophils # 9.7 K/mcL (1.6-8.9); Platelet Count 393 K/mcL (140-400); Red Blood Count 3.64 M/mcL (4.19-5.50); Red Cell Distribution Width 13.2 % (11.5-14.5); Segmented Neutrophils % 77.6 %; White Blood Count 12.5 K/mcL (4.3-11.1)
[2021-02-16] MEDS: Metoprolol XL (24 HR) Succ 50 MG TAB.ER.24H PO SCH (08:43)
[2021-02-16] MEDS: Sennosides/Docusate Sodium TABLET PO SCH ×2 (08:43→20:58)
[2021-02-16] MEDS: Fenofibrate 54 MG TABLET PO SCH (08:44)
[2021-02-16] MEDS: Aspirin Enteric Coated 81 MG Tablet PO SCH (08:44)
[2021-02-16] MEDS: Niacin (24 HR) 500 MG TAB.ER.24H PO SCH (08:44)
[2021-02-16] MEDS: Sulfamethoxazole/Trimeth DS 1 EACH TABLET PO SCH ×2 (08:44→20:57)
[2021-02-16] MEDS: Insulin DETEMIR 100 UNIT/ML X5UNITS SUBQ SCH ×2 (08:44→20:56)
[2021-02-16] MEDS: *HR* Insulin Regular U-500 500 UNIT/ML SUBQ SCH ×2 (08:48→17:05)
[2021-02-16] MEDS: *HR* OxyCODONE Immed Rel 5 MG TABLET PO PRN (19:21)
[2021-02-16] MEDS: *HR* LORazepam 0.5 MG TABLET PO PRN (20:57)
[2021-02-17] MEDS: Ondansetron ODT 4 MG TAB.RAPDIS SL PRN (07:38)
[2021-02-17] MEDS: *HR* OxyCODONE Immed Rel 5 MG TABLET PO PRN ×2 (07:38→20:47)
[2021-02-17] MEDS: *HR* Insulin Regular U-500 500 UNIT/ML SUBQ SCH ×2 (10:30→17:04)
[2021-02-17] MEDS: Insulin DETEMIR 100 UNIT/ML X5UNITS SUBQ SCH ×2 (10:32→20:48)
[2021-02-17] MEDS: Sennosides/Docusate Sodium TABLET PO SCH ×2 (11:25→20:47)
[2021-02-17] MEDS: Fenofibrate 54 MG TABLET PO SCH (11:25)
[2021-02-17] MEDS: Sulfamethoxazole/Trimeth DS 1 EACH TABLET PO SCH ×2 (11:25→20:47)
[2021-02-17] MEDS: Metoprolol XL (24 HR) Succ 50 MG TAB.ER.24H PO SCH (11:25)
[2021-02-17] MEDS: Aspirin Enteric Coated 81 MG Tablet PO SCH (11:25)
[2021-02-17] MEDS: Niacin (24 HR) 500 MG TAB.ER.24H PO SCH (11:32)
[2021-02-17] MEDS: *HR* Heparin 5,000 UNIT/ML VIAL SQ SCH ×2 (20:46→21:20)
[2021-02-18] MEDS: *HR* OxyCODONE Immed Rel 5 MG TABLET PO PRN ×4 (00:37→21:53)
[2021-02-18] MEDS: Ondansetron ODT 4 MG TAB.RAPDIS SL PRN (06:36)
[2021-02-18] MEDS: *HR* Heparin 5,000 UNIT/ML VIAL SQ SCH ×2 (06:36→17:29)
[2021-02-18] MEDS: Niacin (24 HR) 500 MG TAB.ER.24H PO SCH (08:20)
[2021-02-18] MEDS: Metoprolol XL (24 HR) Succ 50 MG TAB.ER.24H PO SCH (08:20)
[2021-02-18] MEDS: Aspirin Enteric Coated 81 MG Tablet PO SCH (08:20)
[2021-02-18] MEDS: Sennosides/Docusate Sodium TABLET PO SCH ×2 (08:20→21:53)
[2021-02-18] MEDS: Sulfamethoxazole/Trimeth DS 1 EACH TABLET PO SCH ×2 (08:21→21:54)
[2021-02-18] MEDS: Fenofibrate 54 MG TABLET PO SCH (08:21)
[2021-02-18 09:03] LABS: Basophils # 0.1 K/mcL (0.0-0.2); Basophils % 0.6 %; Eosinophils # 0.1 K/mcL (0.0-0.6); Eosinophils % 0.7 %; Hematocrit 33.8 % (37.5-50.1); Lymphocytes # 1.4 K/mcL (0.6-4.6); Lymphocytes % 13.3 %; Mean Corpuscular HGB Conc 32.5 g/dL (31.6-35.5); Mean Corpuscular Hemoglobin 29.2 pg (28.0-33.3); Mean Corpuscular Volume 89.7 fL (83.0-100.0); Mean Platelet Volume 9.2 fL (9.4-12.4); Monocytes # 1.2 K/mcL (0.0-1.3); Monocytes % 11.4 %; Neutrophils # 7.9 K/mcL (1.6-8.9); Platelet Count 395 K/mcL (140-400); Red Blood Count 3.77 M/mcL (4.19-5.50); Red Cell Distribution Width 13.2 % (11.5-14.5); White Blood Count 10.8 K/mcL (4.3-11.1)
[2021-02-18] MEDS: *HR* Insulin Regular U-500 500 UNIT/ML SUBQ SCH ×2 (09:25→17:43)
[2021-02-18] MEDS: Insulin DETEMIR 100 UNIT/ML X5UNITS SUBQ SCH ×2 (09:25→21:54)
[2021-02-19] MEDS: Sennosides/Docusate Sodium TABLET PO SCH ×2 (07:51→21:12)
[2021-02-19] MEDS: Metoprolol XL (24 HR) Succ 50 MG TAB.ER.24H PO SCH (07:51)
[2021-02-19] MEDS: *HR* Heparin 5,000 UNIT/ML VIAL SQ SCH ×2 (07:51→16:22)
[2021-02-19] MEDS: Fenofibrate 54 MG TABLET PO SCH (07:51)
[2021-02-19] MEDS: Aspirin Enteric Coated 81 MG Tablet PO SCH (07:52)
[2021-02-19] MEDS: Sulfamethoxazole/Trimeth DS 1 EACH TABLET PO SCH ×2 (07:57→21:12)
[2021-02-19] MEDS: Niacin (24 HR) 500 MG TAB.ER.24H PO SCH (07:57)
[2021-02-19] MEDS: *HR* Insulin Regular U-500 500 UNIT/ML SUBQ SCH ×2 (08:00→17:59)
[2021-02-19] MEDS: *HR* OxyCODONE Immed Rel 5 MG TABLET PO PRN ×3 (10:21→21:12)
[2021-02-19] MEDS: Insulin DETEMIR 100 UNIT/ML X5UNITS SUBQ SCH ×2 (10:21→21:10)
[2021-02-20] MEDS: *HR* Heparin 5,000 UNIT/ML VIAL SQ SCH ×2 (05:49→17:24)
[2021-02-20] MEDS: Metoprolol XL (24 HR) Succ 50 MG TAB.ER.24H PO SCH (08:50)
[2021-02-20] MEDS: Fenofibrate 54 MG TABLET PO SCH (08:50)
[2021-02-20] MEDS: Sulfamethoxazole/Trimeth DS 1 EACH TABLET PO SCH ×2 (08:51→22:00)
[2021-02-20] MEDS: Insulin DETEMIR 100 UNIT/ML X5UNITS SUBQ SCH ×2 (08:51→22:00)
[2021-02-20] MEDS: Sennosides/Docusate Sodium TABLET PO SCH ×2 (08:51→22:01)
[2021-02-20] MEDS: Niacin (24 HR) 500 MG TAB.ER.24H PO SCH (08:51)
[2021-02-20] MEDS: Aspirin Enteric Coated 81 MG Tablet PO SCH (08:51)
[2021-02-20] MEDS: *HR* Insulin Regular U-500 500 UNIT/ML SUBQ SCH ×2 (08:58→17:24)
[2021-02-20] MEDS: *HR* OxyCODONE Immed Rel 5 MG TABLET PO PRN ×2 (15:01→22:01)
[2021-02-21] MEDS: *HR* OxyCODONE Immed Rel 5 MG TABLET PO PRN (04:21)
[2021-02-21] MEDS: *HR* Heparin 5,000 UNIT/ML VIAL SQ SCH ×2 (05:55→17:26)
[2021-02-21] MEDS: Fenofibrate 54 MG TABLET PO SCH (09:46)
[2021-02-21] MEDS: *HR* Insulin Regular U-500 500 UNIT/ML SUBQ SCH ×2 (09:46→17:32)
[2021-02-21] MEDS: Sennosides/Docusate Sodium TABLET PO SCH ×2 (09:47→20:04)
[2021-02-21] MEDS: Insulin DETEMIR 100 UNIT/ML X5UNITS SUBQ SCH ×2 (09:47→20:07)
[2021-02-21] MEDS: Aspirin Enteric Coated 81 MG Tablet PO SCH (09:47)
[2021-02-21] MEDS: Metoprolol XL (24 HR) Succ 50 MG TAB.ER.24H PO SCH (09:47)
[2021-02-21] MEDS: Niacin (24 HR) 500 MG TAB.ER.24H PO SCH (09:52)
[2021-02-21] MEDS: Sulfamethoxazole/Trimeth DS 1 EACH TABLET PO SCH ×2 (10:06→20:05)
[2021-02-21] MEDS ORDERED: *HR* Dextrose 50 % in Water (Syg) 50 ML SYRINGE IVP PRN (17:13)
[2021-02-21] MEDS ORDERED: D5% in Water 1,000 ML IVC PRN (17:13)
[2021-02-21] MEDS ORDERED: Dextrose Gel 15 GM/37.5 ML TUBE PO PRN ×2 (17:13)
[2021-02-21] MEDS: Insulin LISPRO 300 UNITS/3 ML VIAL SUBQ SCH ×2 (17:27→20:08)
[2021-02-21] MEDS: Ondansetron ODT 4 MG TAB.RAPDIS SL PRN (18:36)
[2021-02-22] MEDS: *HR* Heparin 5,000 UNIT/ML VIAL SQ SCH ×2 (05:15→16:40)
[2021-02-22] MEDS ORDERED: Insulin LISPRO 300 UNITS/3 ML VIAL SUBQ SCH (07:30)
[2021-02-22] MEDS: Niacin (24 HR) 500 MG TAB.ER.24H PO SCH (07:55)
[2021-02-22] MEDS: Fenofibrate 54 MG TABLET PO SCH (07:55)
[2021-02-22] MEDS: Metoprolol XL (24 HR) Succ 50 MG TAB.ER.24H PO SCH (07:56)
[2021-02-22] MEDS: Sennosides/Docusate Sodium TABLET PO SCH ×2 (07:56→20:38)
[2021-02-22] MEDS: *HR* OxyCODONE Immed Rel 5 MG TABLET PO PRN (07:56)
[2021-02-22] MEDS: Aspirin Enteric Coated 81 MG Tablet PO SCH (07:56)
[2021-02-22] MEDS: Sulfamethoxazole/Trimeth DS 1 EACH TABLET PO SCH ×2 (07:56→20:37)
[2021-02-22] MEDS: Insulin LISPRO 300 UNITS/3 ML VIAL SUBQ SCH ×4 (07:57→20:38)
[2021-02-22] MEDS: Insulin DETEMIR 100 UNIT/ML X5UNITS SUBQ SCH ×2 (08:17→20:38)
[2021-02-23] MEDS: *HR* OxyCODONE Immed Rel 5 MG TABLET PO PRN ×2 (03:19→20:36)
[2021-02-23] MEDS: *HR* Heparin 5,000 UNIT/ML VIAL SQ SCH ×2 (05:52→16:48)
[2021-02-23] MEDS: Fenofibrate 54 MG TABLET PO SCH (08:50)
[2021-02-23] MEDS: Sulfamethoxazole/Trimeth DS 1 EACH TABLET PO SCH ×2 (08:51→20:36)
[2021-02-23] MEDS: Metoprolol XL (24 HR) Succ 50 MG TAB.ER.24H PO SCH (08:51)
[2021-02-23] MEDS: Sennosides/Docusate Sodium TABLET PO SCH ×2 (08:52→20:37)
[2021-02-23] MEDS: Aspirin Enteric Coated 81 MG Tablet PO SCH (08:52)
[2021-02-23] MEDS: Niacin (24 HR) 500 MG TAB.ER.24H PO SCH (08:52)
[2021-02-23] MEDS: Insulin LISPRO 300 UNITS/3 ML VIAL SUBQ SCH ×4 (08:53→20:39)
[2021-02-23] MEDS: Insulin DETEMIR 100 UNIT/ML X5UNITS SUBQ SCH ×2 (08:54→20:38)
[2021-02-23] MEDS: *HR* Insulin Regular U-500 500 UNIT/ML SUBQ SCH (17:01)
[2021-02-24] MEDS: *HR* Heparin 5,000 UNIT/ML VIAL SQ SCH ×2 (06:05→16:53)
[2021-02-24] MEDS: Insulin LISPRO 300 UNITS/3 ML VIAL SUBQ SCH ×4 (07:45→20:52)
[2021-02-24] MEDS: Metoprolol XL (24 HR) Succ 50 MG TAB.ER.24H PO SCH (09:10)
[2021-02-24] MEDS: Sennosides/Docusate Sodium TABLET PO SCH ×2 (09:10→20:51)
[2021-02-24] MEDS: Sulfamethoxazole/Trimeth DS 1 EACH TABLET PO SCH ×2 (09:10→20:52)
[2021-02-24] MEDS: Fenofibrate 54 MG TABLET PO SCH (09:10)
[2021-02-24] MEDS: Aspirin Enteric Coated 81 MG Tablet PO SCH (09:10)
[2021-02-24] MEDS: *HR* Insulin Regular U-500 500 UNIT/ML SUBQ SCH ×2 (09:35→16:58)
[2021-02-24] MEDS: Insulin DETEMIR 100 UNIT/ML X5UNITS SUBQ SCH ×2 (09:40→20:52)
[2021-02-24] MEDS ORDERED: Furosemide 40 MG TABLET PO STA (11:57)
[2021-02-24 12:19] LABS: Basophils # 0.1 K/mcL (0.0-0.2); Eosinophils # 0.1 K/mcL (0.0-0.6); Eosinophils % 1.4 %; Hematocrit 36.5 % (37.5-50.1); Hemoglobin 12.1 g/dL (12.9-16.9); Immature Granulocytes % 1.2 % (0-4); Lymphocytes # 1.4 K/mcL (0.6-4.6); Lymphocytes % 18.1 %; Mean Corpuscular HGB Conc 33.2 g/dL (31.6-35.5); Mean Corpuscular Hemoglobin 29.1 pg (28.0-33.3); Mean Corpuscular Volume 87.7 fL (83.0-100.0); Mean Platelet Volume 8.9 fL (9.4-12.4); Monocytes # 0.4 K/mcL (0.0-1.3); Monocytes % 5.1 %; Neutrophils # 5.6 K/mcL (1.6-8.9); Platelet Count 446 K/mcL (140-400); Red Blood Count 4.16 M/mcL (4.19-5.50); Red Cell Distribution Width 13.2 % (11.5-14.5); Segmented Neutrophils % 73.2 %; White Blood Count 7.7 K/mcL (4.3-11.1)
[2021-02-24 12:34] LABS: Albumin 3.7 g/dL (3.5-5.7); Albumin/Globulin Ratio 0.9 (1.1-2.2); Bilirubin,Total 0.4 mg/dL (0.3-1.0); Calcium 10.2 mg/dL (8.6-10.3); Potassium 4.8 mEq/L (3.5-5.1); Total Protein 7.7 g/dL (6.4-8.9)
[2021-02-24] MEDS: Niacin (24 HR) 500 MG TAB.ER.24H PO SCH (12:39)
[2021-02-24 18:16] LABS: Bilirubin,Urine Negative (Negative); Blood,Urine Negative (Negative); Clarity,Urine Clear (Clear); Color,Urine Yellow (Yellow); Glucose,Urine (UA) Normal (Normal); Ketones,Urine Negative (Negative); Leukocyte Esterase,Urine Negative (Negative); Nitrite,Urine Negative (Negative); Protein,Urine Negative (Neg-Trace); Urobilinogen,Urine Normal (Normal)
[2021-02-25] MEDS: *HR* Heparin 5,000 UNIT/ML VIAL SQ SCH ×2 (05:23→16:58)
[2021-02-25] MEDS: Insulin LISPRO 300 UNITS/3 ML VIAL SUBQ SCH ×4 (07:07→19:52)
[2021-02-25] MEDS: Sulfamethoxazole/Trimeth DS 1 EACH TABLET PO SCH ×2 (08:38→19:52)
[2021-02-25] MEDS: Aspirin Enteric Coated 81 MG Tablet PO SCH (08:38)
[2021-02-25] MEDS: Fenofibrate 54 MG TABLET PO SCH (08:38)
[2021-02-25] MEDS: Niacin (24 HR) 500 MG TAB.ER.24H PO SCH (08:38)
[2021-02-25] MEDS: Sennosides/Docusate Sodium TABLET PO SCH ×2 (08:38→19:52)
[2021-02-25] MEDS: Metoprolol XL (24 HR) Succ 50 MG TAB.ER.24H PO SCH (08:38)
[2021-02-25] MEDS: *HR* Insulin Regular U-500 500 UNIT/ML SUBQ SCH ×2 (08:39→16:58)
[2021-02-25] MEDS: Insulin DETEMIR 100 UNIT/ML X5UNITS SUBQ SCH ×2 (08:39→19:52)
[2021-02-25] MEDS: *HR* OxyCODONE Immed Rel 5 MG TABLET PO PRN ×2 (10:50→15:46)
[2021-02-26] MEDS: *HR* Heparin 5,000 UNIT/ML VIAL SQ SCH ×2 (05:18→17:00)
[2021-02-26] MEDS: Niacin (24 HR) 500 MG TAB.ER.24H PO SCH (07:28)
[2021-02-26] MEDS: Metoprolol XL (24 HR) Succ 50 MG TAB.ER.24H PO SCH (07:28)
[2021-02-26] MEDS: Aspirin Enteric Coated 81 MG Tablet PO SCH (07:28)
[2021-02-26] MEDS: Sennosides/Docusate Sodium TABLET PO SCH ×2 (07:29→21:38)
[2021-02-26] MEDS: Fenofibrate 54 MG TABLET PO SCH (07:29)
[2021-02-26] MEDS: Insulin LISPRO 300 UNITS/3 ML VIAL SUBQ SCH ×4 (07:30→21:54)
[2021-02-26] MEDS: Insulin DETEMIR 100 UNIT/ML X5UNITS SUBQ SCH ×2 (08:50→21:50)
[2021-02-26] MEDS: *HR* Insulin Regular U-500 500 UNIT/ML SUBQ SCH ×2 (08:50→17:00)
[2021-02-26] MEDS: *HR* OxyCODONE Immed Rel 5 MG TABLET PO PRN ×2 (10:10→21:38)
[2021-02-27] MEDS: *HR* Heparin 5,000 UNIT/ML VIAL SQ SCH ×2 (07:09→17:15)
[2021-02-27] MEDS: Insulin LISPRO 300 UNITS/3 ML VIAL SUBQ SCH ×4 (08:46→21:19)
[2021-02-27] MEDS: Fenofibrate 54 MG TABLET PO SCH (08:53)
[2021-02-27] MEDS: Sennosides/Docusate Sodium TABLET PO SCH ×2 (08:53→21:18)
[2021-02-27] MEDS: Metoprolol XL (24 HR) Succ 50 MG TAB.ER.24H PO SCH (08:54)
[2021-02-27] MEDS: Niacin (24 HR) 500 MG TAB.ER.24H PO SCH (08:54)
[2021-02-27] MEDS: Aspirin Enteric Coated 81 MG Tablet PO SCH (08:54)
[2021-02-27] MEDS: *HR* Insulin Regular U-500 500 UNIT/ML SUBQ SCH ×2 (08:55→17:15)
[2021-02-27] MEDS: Insulin DETEMIR 100 UNIT/ML X5UNITS SUBQ SCH ×2 (08:55→21:18)
[2021-02-27 09:37] LABS: Hematocrit 34.7 % (37.5-50.1); Hemoglobin 11.6 g/dL (12.9-16.9); Mean Corpuscular HGB Conc 33.4 g/dL (31.6-35.5); Mean Corpuscular Hemoglobin 29.1 pg (28.0-33.3); Mean Corpuscular Volume 87.2 fL (83.0-100.0); Platelet Count 449 K/mcL (140-400); Red Blood Count 3.98 M/mcL (4.19-5.50); Red Cell Distribution Width 13.8 % (11.5-14.5)
[2021-02-27 09:57] LABS: Alanine Aminotransferase 24 Units/L (7-52); Albumin 3.7 g/dL (3.5-5.7); Alkaline Phosphatase 90 Units/L (34-104); Aspartate Amino Transferase 23 Units/L (13-39); BUN/Creatinine Ratio 17 (6-26); Bilirubin,Total 0.4 mg/dL (0.3-1.0); Blood Urea Nitrogen 23 mg/dL (8-23); Carbon Dioxide 27 mEq/L (23-29); Chloride 99 mEq/L (98-107); Globulin 3.7 g/dL (2.4-3.5); Glucose 176 mg/dL (70-105); Osmolality,Calculated 286 (280-300); Potassium 4.3 mEq/L (3.5-5.1); Sodium 134 mEq/L (136-145); Total Protein 7.4 g/dL (6.4-8.9); eGFR For African Americans > 60 (> 60); eGFR For Non-African Americans 52 (> 60)
[2021-02-27] MEDS: *HR* OxyCODONE Immed Rel 5 MG TABLET PO PRN ×2 (11:56→21:18)
[2021-02-28] MEDS: *HR* Heparin 5,000 UNIT/ML VIAL SQ SCH ×2 (05:45→16:35)
[2021-02-28] MEDS: Aspirin Enteric Coated 81 MG Tablet PO SCH (07:44)
[2021-02-28] MEDS: Sennosides/Docusate Sodium TABLET PO SCH ×2 (07:44→19:50)
[2021-02-28] MEDS: Insulin LISPRO 300 UNITS/3 ML VIAL SUBQ SCH ×4 (07:44→19:50)
[2021-02-28] MEDS: Metoprolol XL (24 HR) Succ 50 MG TAB.ER.24H PO SCH (07:44)
[2021-02-28] MEDS: Fenofibrate 54 MG TABLET PO SCH (07:44)
[2021-02-28] MEDS: Niacin (24 HR) 500 MG TAB.ER.24H PO SCH (07:48)
[2021-02-28] MEDS: Insulin DETEMIR 100 UNIT/ML X5UNITS SUBQ SCH ×2 (09:47→19:50)
[2021-02-28] MEDS: *HR* Insulin Regular U-500 500 UNIT/ML SUBQ SCH ×2 (09:47→16:36)
[2021-02-28] MEDS: *HR* OxyCODONE Immed Rel 5 MG TABLET PO PRN ×2 (15:16→19:50)
[2021-03-01] MEDS: *HR* Heparin 5,000 UNIT/ML VIAL SQ SCH ×2 (05:10→16:48)
[2021-03-01] MEDS: Aspirin Enteric Coated 81 MG Tablet PO SCH (07:42)
[2021-03-01] MEDS: Fenofibrate 54 MG TABLET PO SCH (07:43)
[2021-03-01] MEDS: Sennosides/Docusate Sodium TABLET PO SCH ×2 (07:43→19:54)
[2021-03-01] MEDS: Insulin LISPRO 300 UNITS/3 ML VIAL SUBQ SCH ×4 (07:45→19:58)
[2021-03-01] MEDS: Niacin (24 HR) 500 MG TAB.ER.24H PO SCH (07:50)
[2021-03-01] MEDS: Metoprolol XL (24 HR) Succ 50 MG TAB.ER.24H PO SCH (07:51)
[2021-03-01] MEDS: Insulin DETEMIR 100 UNIT/ML X5UNITS SUBQ SCH ×2 (07:59→19:56)
[2021-03-01] MEDS: *HR* Insulin Regular U-500 500 UNIT/ML SUBQ SCH ×2 (08:00→16:47)
[2021-03-01] MEDS: *HR* OxyCODONE Immed Rel 5 MG TABLET PO PRN (19:55)
[2021-03-02] MEDS: *HR* OxyCODONE Immed Rel 5 MG TABLET PO PRN ×2 (00:56→08:57)
[2021-03-02] MEDS: *HR* Heparin 5,000 UNIT/ML VIAL SQ SCH ×2 (05:13→16:24)
[2021-03-02] MEDS: Sennosides/Docusate Sodium TABLET PO SCH ×2 (08:57→20:32)
[2021-03-02] MEDS: Fenofibrate 54 MG TABLET PO SCH (08:57)
[2021-03-02] MEDS: Metoprolol XL (24 HR) Succ 50 MG TAB.ER.24H PO SCH (08:57)
[2021-03-02] MEDS: *HR* Insulin Regular U-500 500 UNIT/ML SUBQ SCH ×2 (08:58→18:01)
[2021-03-02] MEDS: Insulin DETEMIR 100 UNIT/ML X5UNITS SUBQ SCH ×2 (08:58→20:35)
[2021-03-02] MEDS: Insulin LISPRO 300 UNITS/3 ML VIAL SUBQ SCH ×4 (08:58→20:32)
[2021-03-02] MEDS: Niacin (24 HR) 500 MG TAB.ER.24H PO SCH (09:02)
[2021-03-02] MEDS: Aspirin Enteric Coated 81 MG Tablet PO SCH (09:02)
[2021-03-03] MEDS: *HR* Heparin 5,000 UNIT/ML VIAL SQ SCH ×2 (05:27→17:12)
[2021-03-03] MEDS: Fenofibrate 54 MG TABLET PO SCH (09:03)
[2021-03-03] MEDS: Aspirin Enteric Coated 81 MG Tablet PO SCH (09:04)
[2021-03-03] MEDS: Sennosides/Docusate Sodium TABLET PO SCH ×2 (09:04→21:55)
[2021-03-03] MEDS: Metoprolol XL (24 HR) Succ 50 MG TAB.ER.24H PO SCH (09:05)
[2021-03-03] MEDS: Niacin (24 HR) 500 MG TAB.ER.24H PO SCH (09:05)
[2021-03-03] MEDS: *HR* Insulin Regular U-500 500 UNIT/ML SUBQ SCH ×2 (09:06→17:13)
[2021-03-03] MEDS: Insulin DETEMIR 100 UNIT/ML X5UNITS SUBQ SCH ×2 (09:06→23:23)
[2021-03-03] MEDS: Insulin LISPRO 300 UNITS/3 ML VIAL SUBQ SCH ×4 (09:10→22:35)
[2021-03-03] MEDS: *HR* OxyCODONE Immed Rel 5 MG TABLET PO PRN ×2 (14:40→21:55)
[2021-03-03] MEDS: GuaiFENesin Liq 200 MG/10 ML UDC PO PRN (21:54)
[2021-03-03] MEDS: Benzonatate 100 MG CAPSULE PO PRN (21:55)
[2021-03-03] MEDS: *HR* LORazepam 0.5 MG TABLET PO PRN (21:57)
[2021-03-04] MEDS: *HR* Heparin 5,000 UNIT/ML VIAL SQ SCH ×2 (06:24→18:02)
[2021-03-04] MEDS: *HR* Insulin Regular U-500 500 UNIT/ML SUBQ SCH ×2 (09:29→18:02)
[2021-03-04] MEDS: Insulin DETEMIR 100 UNIT/ML X5UNITS SUBQ SCH ×2 (09:29→21:17)
[2021-03-04] MEDS: Insulin LISPRO 300 UNITS/3 ML VIAL SUBQ SCH ×4 (09:29→21:18)
[2021-03-04] MEDS: Sennosides/Docusate Sodium TABLET PO SCH ×2 (09:30→21:17)
[2021-03-04] MEDS: Fenofibrate 54 MG TABLET PO SCH (09:30)
[2021-03-04] MEDS: Metoprolol XL (24 HR) Succ 50 MG TAB.ER.24H PO SCH (09:30)
[2021-03-04] MEDS: Aspirin Enteric Coated 81 MG Tablet PO SCH (09:30)
[2021-03-04] MEDS: Niacin (24 HR) 500 MG TAB.ER.24H PO SCH (09:36)
[2021-03-04] MEDS: *HR* LORazepam 0.5 MG TABLET PO PRN (21:17)
[2021-03-04] MEDS: Benzonatate 100 MG CAPSULE PO PRN (21:17)
[2021-03-04] MEDS: *HR* OxyCODONE Immed Rel 5 MG TABLET PO PRN (21:18)
[2021-03-05] MEDS: *HR* Heparin 5,000 UNIT/ML VIAL SQ SCH ×2 (06:33→17:40)
[2021-03-05] MEDS: Metoprolol XL (24 HR) Succ 50 MG TAB.ER.24H PO SCH (07:51)
[2021-03-05] MEDS: Sennosides/Docusate Sodium TABLET PO SCH ×2 (07:52→20:46)
[2021-03-05] MEDS: Niacin (24 HR) 500 MG TAB.ER.24H PO SCH (07:52)
[2021-03-05] MEDS: *HR* OxyCODONE Immed Rel 5 MG TABLET PO PRN (07:53)
[2021-03-05] MEDS: Aspirin Enteric Coated 81 MG Tablet PO SCH (07:53)
[2021-03-05] MEDS: Fenofibrate 54 MG TABLET PO SCH (07:53)
[2021-03-05] MEDS: Insulin DETEMIR 100 UNIT/ML X5UNITS SUBQ SCH ×2 (08:26→17:40)
[2021-03-05] MEDS: *HR* Insulin Regular U-500 500 UNIT/ML SUBQ SCH ×2 (08:26→17:40)
[2021-03-05] MEDS: Insulin LISPRO 300 UNITS/3 ML VIAL SUBQ SCH ×4 (08:26→20:47)
[2021-03-05 17:45] VITALS: PULSE 77
[2021-03-05] MEDS: *HR* LORazepam 0.5 MG TABLET PO PRN (21:14)
[2021-03-06] MEDS: *HR* Heparin 5,000 UNIT/ML VIAL SQ SCH (05:49)
[2021-03-06 08:11] VITALS: BP 123/79; RESP 18; TEMP 97.9
[2021-03-06] MEDS: Sennosides/Docusate Sodium TABLET PO SCH (08:53)
[2021-03-06] MEDS: Fenofibrate 54 MG TABLET PO SCH (08:53)
[2021-03-06] MEDS: *HR* Insulin Regular U-500 500 UNIT/ML SUBQ SCH (09:00)
[2021-03-06] MEDS: Aspirin Enteric Coated 81 MG Tablet PO SCH (09:00)
[2021-03-06] MEDS: Niacin (24 HR) 500 MG TAB.ER.24H PO SCH (09:01)
[2021-03-06] MEDS: Metoprolol XL (24 HR) Succ 50 MG TAB.ER.24H PO SCH (09:01)
[2021-03-06] MEDS: Insulin DETEMIR 100 UNIT/ML X5UNITS SUBQ SCH (09:01)
[2021-03-06] MEDS: Insulin LISPRO 300 UNITS/3 ML VIAL SUBQ SCH ×2 (09:03→11:27)
[2021-03-06 09:38] VITALS: O2SAT 97
== END 2021-03-06 11:52 | disposition home health service (06) | DRG 91 ==
LOC: INPPIK 17:17
PROVIDERS: ADMIT Family Medicine; ATTEND Family Medicine